=== PATIENT | male | born 1960 | race Caucasian/White ===

== ENCOUNTER 2017-12-22 08:00 | Emergency (ER) | payer OTHER, BC ==
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
== END 2017-12-22 10:11 | disposition home or self-care (01) ==
LOC: DL.ED 08:00
DX: S16.1XXA Strain of muscle, fascia and tendon at neck level, initial encounter (principal); S29.012A Strain of muscle and tendon of back wall of thorax, initial encounter; M75.32 Calcific tendinitis of left shoulder; V89.2XXA Person injured in unspecified motor-vehicle accident, traffic, initial encounter
CPT/HCPCS: 70450; 72070; 72125; 73030-LT; 99284